=== PATIENT | male | born 1945 | race Native Hawaiian/Other Pacific Islander ===

== ENCOUNTER 2016-11-28 08:30 | Outpatient (CLI) | payer OTHER ==
[2016-11-28 09:34] LABS: POTASSIUM 4.2 mmol/L (3.6-5.2); SODIUM 135 mmol/L (136-145)
== END 2016-11-28 09:30 | disposition home or self-care (01) ==
LOC: LABW 08:30
PROVIDERS: Nurse Practitioner
DX: E11.9 Type 2 diabetes mellitus without complications (principal); R94.6 Abnormal results of thyroid function studies
CPT/HCPCS: 36415; 80048; 83036; 84439; 84443

== ENCOUNTER 2018-07-31 14:18 | Outpatient (CLI) | payer OTHER | END 2018-07-31 23:24 | disposition home or self-care (01) | LOC: US 14:18 | DX: M79.605 Pain in left leg (principal) ==

== ENCOUNTER 2019-05-13 13:58 | Outpatient (CLI) | payer OTHER | END 2019-05-13 23:39 | disposition home or self-care (01) | LOC: RAD 13:58 | DX: I10 Essential (primary) hypertension (principal) ==

== ENCOUNTER 2020-07-28 14:29 | Inpatient (IN) | payer OTHER ==
[~2020-07-28] VITALS: Ht 182.9 cm; Wt 107.3 kg
[2020-07-28 14:39] VITALS: BP 150/85; TEMP 102.7
[2020-07-28 15:16] LABS: POTASSIUM 4.2 mmol/L (3.6-5.2); SODIUM 137 mmol/L (136-145)
[2020-07-28 15:17] VITALS: BP 150/72
[2020-07-28 15:27] LABS: PLATELET COUNT 367 K/uL (142-355)
[2020-07-28 16:08] VITALS: BP 142/72; TEMP 100
[2020-07-28 16:11] LABS: PARTIAL THROMBOPLASTIN TIME 29.2 SECONDS (24.5-33.6)
[2020-07-28 17:15] VITALS: BP 109/68; TEMP 97.9; Ht 182.9 cm; Wt 107.3 kg
[2020-07-28 19:52] VITALS: BP 107/57; TEMP 98.4
[2020-07-28 20:00] VITALS: BP 107/57; TEMP 98.4
[2020-07-28] MEDS ORDERED: GLIM4TAB PO (20:21)
[2020-07-28] MEDS ORDERED: METFORMIN ER1000 MG PO (20:23)
[2020-07-28] MEDS ORDERED: COZAAR100 MG PO (20:23)
[2020-07-28] MEDS ORDERED: AMLODIPINE BESYLATE PO (20:24)
[2020-07-28] MEDS ORDERED: HYDROCHLOROT12.5 M1 PO (20:24)
[2020-07-28] MEDS ORDERED: MOBIC15 MG PO (20:25)
[2020-07-28] MEDS ORDERED: PRAVACHOL20 MG PO (20:27)
[2020-07-29 00:29] VITALS: BP 110/61; TEMP 98.3
[2020-07-29 04:00] VITALS: BP 102/62; TEMP 97.6
[2020-07-29 12:00] VITALS: BP 126/65; TEMP 97.9
[2020-07-29 12:32] LABS: PLATELET COUNT 315 K/uL (142-355)
[2020-07-29 12:53] LABS: POTASSIUM 4.6 mmol/L (3.6-5.2)
[2020-07-29 16:00] VITALS: BP 129/68; TEMP 97.6
[2020-07-29 19:53] VITALS: BP 127/71; TEMP 98.1
[2020-07-30] VITALS: BP 146/80; TEMP 97.7
[2020-07-30 04:00] VITALS: BP 116/84; TEMP 97.5
[2020-07-30 08:00] VITALS: BP 154/74; TEMP 97.8
[2020-07-30 12:00] VITALS: BP 154/74; TEMP 97.8
[2020-07-30 16:00] VITALS: BP 131/77; TEMP 97.8
== END 2020-07-30 19:25 | disposition short-term general hospital (02) | DRG 206 ==
LOC: EDBD 14:29 → ED 14:29 → MED/SURG 16:28
PROVIDERS: Internal Medicine; ADMIT Hospitalist
DX: J98.11 Atelectasis (principal); R91.8 Other nonspecific abnormal finding of lung field; R06.09 Other forms of dyspnea; I25.10 Atherosclerotic heart disease of native coronary artery without angina pectoris; E11.9 Type 2 diabetes mellitus without complications; E78.49 Other hyperlipidemia; I11.9 Hypertensive heart disease without heart failure; J98.09 Other diseases of bronchus, not elsewhere classified
CPT/HCPCS: 36415; 36600; 80053; 80202; 82550; 82805; 83605; 83880; 84484; 85027; 85379; 85610; 85730; 87040; 87502; 87635; 87651; 93005; 94760; 96365; 96366; 96375; 99284; J1100; J1650; J1815; J1940; J1956; J2060; J2405; J3370; Q9963; U0003

== ENCOUNTER 2020-08-29 10:17 | Inpatient (IN) | payer OTHER ==
[2020-08-29] VITALS (7 sets, daily range): BP systolic 14–132; BP diastolic 64–75; TEMP 98.1–99.2; Ht 182.9 cm; Wt 111.4 kg
[~2020-08-29] VITALS: Ht 182.9 cm; Wt 111.4 kg
[~2020-08-29 10:17] MED LIST: AMLODIPINE BESYLATE PO; COZAAR100 MG PO; GLIM4TAB PO; HYDROCHLOROT12.5 M1 PO; METFORMIN ER1000 MG PO; MOBIC15 MG PO; PRAVACHOL20 MG PO
[2020-08-29 10:58] LABS: PLATELET COUNT 372 K/uL (142-355)
[2020-08-29 11:05] LABS: POTASSIUM 4.1 mmol/L (3.6-5.2); SODIUM 139 mmol/L (136-145)
[2020-08-29] MEDS ORDERED: FURO40TA93 PO (15:16)
[2020-08-29] MEDS ORDERED: TRAZODONE HYDRO50 MG PO (15:17)
[2020-08-29] MEDS ORDERED: DOXYCYCLINE HYC50 MG PO (15:22)
[2020-08-29] MEDS ORDERED: VITAMIN C1000 MG PO (15:24)
[2020-08-29] MEDS ORDERED: ZINC50 M1 PO (15:24)
[2020-08-29] MEDS ORDERED: VITAMIN D PO (15:25)
[2020-08-30 04:00] VITALS: BP 99/58; TEMP 98.4
[2020-08-30 08:00] VITALS: BP 97/54; TEMP 97.9
[2020-08-30 12:00] VITALS: BP 116/61; TEMP 97.7
[2020-08-30 15:24] LABS: POTASSIUM 3.8 mmol/L (3.6-5.2)
[2020-08-30 15:33] LABS: PLATELET COUNT 311 K/uL (142-355)
[2020-08-30 16:00] VITALS: BP 108/53; TEMP 97.6
[2020-08-30 20:00] VITALS: BP 119/71; TEMP 98.2
[2020-08-30 23:41] VITALS: BP 112/59; TEMP 98.8
[2020-08-31 04:00] VITALS: BP 116/61; TEMP 98.2
[2020-08-31 06:00] LABS: PLATELET COUNT 281 K/uL (142-355)
[2020-08-31 06:15] LABS: POTASSIUM 3.7 mmol/L (3.6-5.2)
[2020-08-31 08:00] VITALS: BP 111/75; TEMP 97.5
[2020-08-31] MEDS ORDERED: LEVAQUIN250 MG PO (10:31)
[2020-08-31] MEDS ORDERED: DOXYCYCL HYC100 MG PO (10:32)
[2020-08-31 12:00] VITALS: BP 112/62; TEMP 97.9
== END 2020-08-31 14:00 | disposition home or self-care (01) | DRG 189 ==
LOC: ED 10:17 → MED/SURG 11:45
PROVIDERS: Internal Medicine Endocrinology, Diabetes & Metabolism; ADMIT Hospitalist
DX: J96.21 Acute and chronic respiratory failure with hypoxia (principal); J18.8 Other pneumonia, unspecified organism; C34.90 Malignant neoplasm of unspecified part of unspecified bronchus or lung; I11.0 Hypertensive heart disease with heart failure; I50.9 Heart failure, unspecified; E11.9 Type 2 diabetes mellitus without complications
CPT/HCPCS: 36600; 80048; 80053; 82550; 82805; 83605; 83880; 84484; 85027; 85610; 85730; 87040; 93005; 94760; 96365; 96375; 99284; J1650; J1940; J1956; J3490; P9047

== ENCOUNTER 2020-09-16 07:14 | Outpatient (CLI) | payer OTHER ==
[~2020-09-16 07:14] MED LIST changes: +DOXYCYCL HYC100 MG PO; +DOXYCYCLINE HYC50 MG PO; +FURO40TA93 PO; +LEVAQUIN250 MG PO; +TRAZODONE HYDRO50 MG PO; +VITAMIN C1000 MG PO; +VITAMIN D PO; +ZINC50 M1 PO
[2020-09-16 08:09] LABS: PLATELET COUNT 396 K/uL (142-355)
[2020-09-16 08:32] LABS: POTASSIUM 4.5 mmol/L (3.6-5.2)
== END 2020-09-16 20:27 | disposition home or self-care (01) ==
LOC: LABW 07:14
PROVIDERS: Internal Medicine
DX: C34.12 Malignant neoplasm of upper lobe, left bronchus or lung (principal)
CPT/HCPCS: 36415; 80053; 85027

== ENCOUNTER 2020-11-07 07:44 | Outpatient (CLI) | payer OTHER ==
[2020-11-07 08:23] LABS: PLATELET COUNT 313 K/uL (142-355)
[2020-11-07 09:00] LABS: POTASSIUM 4.6 mmol/L (3.6-5.2)
== END 2020-11-07 21:22 | disposition home or self-care (01) ==
LOC: LABW 07:44
PROVIDERS: ATTEND Nurse Practitioner Adult Health
DX: C34.12 Malignant neoplasm of upper lobe, left bronchus or lung (principal); D64.89 Other specified anemias; E53.8 Deficiency of other specified B group vitamins
CPT/HCPCS: 36415; 80053; 82607; 82728; 82746; 83540; 83550; 85027; 85044